=== PATIENT | female | born 1965 | race Caucasian/White ===

== ENCOUNTER → 2016-12-17 | Day surgery (SDC) | payer OTHER ==
[~2016-12-17] MED LIST: Glucagon,Human Recombinant 1 MG Vial IV ONE; LORazepam 2 MG/ML MDV IVPUSH ONE; Midazolam 1 MG/ML 2 ML SDV ONE; Propofol 200 MG/20 ML SDV ONE; Sodium Chloride 0.9% 1,000 ML IV SCH; fentaNYL 100 MCG/2 ML SDV ONE
--- NOTE | 2016-12-17 17:52 | EDM.PDOC ---
ED HPI GENERAL MEDICAL PROBLEM - General Chief Complaint: Gastrointestinal Problem Stated Complaint: SOMETHING STUCK IN THROAT Time Seen by Provider: 12/17/16 15:46 Source of Information: Reports: Patient History Limitations: Reports: No Limitations - History of Present Illness INITIAL COMMENTS - FREE TEXT/NARRATIVE: History of present illness: [51-year-old female presenting with foreign body sensation in esophagus. She was eating a taco salad chips last night and feels that a chip is stuck in her upper esophagus. She's been spitting up all day. She has had a couple of chips come up in doing this. She has no respiratory distress.] Review of systems: As per history of present illness and below otherwise all systems reviewed and negative. Past medical history: As per history of present illness and as reviewed below otherwise noncontributory. Surgical history: As per history of present illness and as reviewed below otherwise noncontributory. Social history: No reported history of drug or alcohol abuse. Family history: As per history of present illness and as reviewed below otherwise noncontributory. Physical exam: HEENT: Atraumatic, normocephalic, pupils reactive, negative for conjunctival pallor or scleral icterus, mucous membranes moist, throat clear no foreign body seen, neck supple, nontender, trachea midline. Lungs: Clear to auscultation, breath sounds equal bilaterally, chest nontender. Heart: S1S2, regular, negative for clicks, rubs, or JVD. Abdomen: Soft, nondistended, nontender. Negative for masses or hepatosplenomegaly. Negative for costovertebral tenderness. Extremities: Atraumatic, negative for cords or calf pain. Neurovascular unremarkable. Neuro: Awake, alert, oriented. Exam nonfocal. Diagnostics: [] Therapeutics: [Patient received IV fluids IV Ativan and IV glucagon and experienced no relief] Impression: [Esophageal foreign body sensation] Plan: [Surgeon sales person is coming in to see the patient and more than likely we'll take her to the endoscopy suite. EKG labs and chest x-ray are pending] Definitive disposition and diagnosis as appropriate pending reevaluation and review of above. - Related Data Allergies Allergy/AdvReac Type Severity Reaction Status Date / Time albuterol Allergy Rash Verified 12/17/16 16:34 latex Allergy Rash Verified 12/17/16 16:34 Home Meds: Home Meds Letrozole 12/17/16 [History] Past Medical History Musculoskeletal History: Reports: Neck Pain, Chronic Oncologic (Cancer) History: Reports: Breast - Past Surgical History Female Surgical History: Reports: Breast Implant, Oophorectomy Social & Family History - Tobacco Use Smoking Status *Q: Never Smoker ED ROS GENERAL - Review of Systems Review Of Systems: ROS reveals no pertinent complaints other than HPI. ED EXAM, GI/ABD - Physical Exam Exam: See Below Course - Vital Signs Last Recorded V/S: Last Vital Signs Temp 37.3 C 12/17/16 16:41 Pulse 107 H 12/17/16 16:41 Resp 16 12/17/16 16:41 BP 178/103 H 12/17/16 16:41 Pulse Ox 98 12/17/16 16:41 - Orders/Labs/Meds Orders: Active Orders 24 hr Category Date Time Status EKG Documentation Completion [RC] ASDIRECTED Care 12/17/16 17:47 Active Chest 2V [CR] Stat Exams 12/17/16 17:46 Ordered BASIC METABOLIC PANEL,BMP [CHEM] Stat Lab 12/17/16 17:46 Ordered CBC WITH AUTO DIFF [HEME] Stat Lab 12/17/16 17:46 Ordered Sodium Chloride 0.9% [Normal Saline] 1,000 ml Med 12/17/16 16:45 Active IV ASDIRECTED EKG 12 Lead [EK] Stat Ther 12/17/16 17:47 Ordered Medication Orders Sodium Chloride (Normal Saline) 1,000 mls @ 150 mls/hr IV ASDIRECTED REDDY Last Admin: 12/17/16 16:53 Dose: 150 mls/hr Meds: Medications Generic Name Dose Route Start Last Admin Trade Name Freq PRN Reason Stop Dose Admin Sodium Chloride 1,000 mls @ 150 mls/hr 12/17/16 16:45 12/17/16 16:53 Normal Saline IV 150 mls/hr ASDIRECTED REDDY Administration Discontinued Medications Generic Name Dose Route Start Last Admin Trade Name Freq PRN Reason Stop Dose Admin Glucagon 1 mg 12/17/16 16:34 12/17/16 16:53 Glucagen IV 12/17/16 16:35 1 mg ONETIME ONE Administration Lorazepam 1 mg 12/17/16 16:34 12/17/16 16:57 Ativan IVPUSH 12/17/16 16:35 1 mg ONETIME ONE Administration Departure - Departure Time of Disposition: 17:52 Disposition: Refer to Observation Condition: good Clinical Impression: Esophageal foreign body Qualifiers: Encounter type: initial encounter Qualified Code(s): T18.108A - Unspecified foreign body in esophagus causing other injury, initial encounter - Discharge Information Forms: ED Department Discharge - My Orders Last 24 Hours: My Active Orders 12/17/16 16:45 Sodium Chloride 0.9% [Normal Saline] 1,000 ml IV ASDIRECTED 12/17/16 17:46 Chest 2V [CR] Stat BASIC METABOLIC PANEL,BMP [CHEM] Stat CBC WITH AUTO DIFF [HEME] Stat 12/17/16 17:47 EKG Documentation Completion [RC] ASDIRECTED EKG 12 Lead [EK] Stat - Assessment/Plan Last 24 Hours: My Active Orders 12/17/16 16:45 Sodium Chloride 0.9% [Normal Saline] 1,000 ml IV ASDIRECTED 12/17/16 17:46 Chest 2V [CR] Stat BASIC METABOLIC PANEL,BMP [CHEM] Stat CBC WITH AUTO DIFF [HEME] Stat 12/17/16 17:47 EKG Documentation Completion [RC] ASDIRECTED EKG 12 Lead [EK] Stat
[2016-12-17 20:22] VITALS: BP 109/72
--- NOTE | 2016-12-19 07:44 | OR ---
DATE OF PROCEDURE: 12/17/2016 PROCEDURE: EGD. FINDINGS: Foreign material noted in distal esophagus (advanced into stomach). COMPLICATIONS: None. REMOTELY OPERATED VEHICLE: None. INDICATIONS: This is a 51-year-old female with a foreign food material requiring removal. The risks, benefits, alternatives, and limitations including, but not to infection, bleeding, and perforation were explained to the patient and the patient understands and wished to proceed. PROCEDURE IN DETAIL: The patient was placed in left lateral decubitus position. EGD scope was introduced and advanced atraumatically to the second part of the duodenum. During this process, there was foreign material. The scope was able to be introduced and advanced through the esophagus, pushing the food in the stomach. At no point was the scope blindly advanced. The esophagus at the GE junction showed inflammation consistent with the current problem, but no other abnormalities. The patient did have very mild gastritis, but most likely inconsequential. No hiatal hernia. The patient tolerated the procedure well. Yovany Bynum MD /[id number]
--- NOTE | 2016-12-19 09:19 | CR ---
Overexposed PA view. This limits details of the lung parenchyma. No definitive radiopaque foreign radha dy about the esophagus.
== END ==
LOC: JP.ED 15:33 → JP.SDS 18:01
PROVIDERS: ATTEND Surgery
DX: T18.108A Unspecified foreign body in esophagus causing other injury, initial encounter (principal); K29.70 Gastritis, unspecified, without bleeding; Z88.8 Allergy status to other drugs, medicaments and biological substances; Z91.040 Latex allergy status; Z79.899 Other long term (current) drug therapy; Z98.890 Other specified postprocedural states; Z90.721 Acquired absence of ovaries, unilateral
CPT/HCPCS: 36415; 43247; 71020; 80048; 85025; 93005; 96361; 96374; 96375; 99285; J1610; J2060; J2250; J2704; J3010; J7040; 93010